=== PATIENT | female | born 1950 | race Caucasian/White ===

== ENCOUNTER 2019-09-06 16:20 | Emergency (ER) | payer MEDICARE ==
[~2019-09-06] VITALS: Ht 167.6 cm; Wt 56.2 kg
[~2019-09-06 16:20] MED LIST: ESTRADIOL0.5 MG PO; LISINOPRIL10 MG PO; PAXIL10 MG PO
--- NOTE | 2019-09-06 17:15 | NUR ---
NO ANSWER IN LOBBY
--- NOTE | 2019-09-06 17:58 | NUR ---
NO ANSWER IN LOBBY
--- OUTSIDE RECORDS SUMMARY | 2019-09-07 19:27 | XMS REPORT ---
Author [facility] Address Unknown Phone Unavailable Care Team Providers Care Storage Receipt Poster Name Role Phone Rene ABR Unavailable Unavailable Problems This patient has no known problems. Allergies, Adverse Reactions, Alerts This patient has no known allergies or adverse reactions. Medications This patient has no known medications. Results Test Description Test Time Test Comments Text Results Atomic Results Result Comments ANKLE 3 VIEW RT - HOPD 2019-08-19 14:28:00 [place] [address] Patient Name: ELVIS PHILLIPS MR #: [id number] : 1950 Age/Sex: 69/F Req #: [id number] Adm Physician: Ordered by: STEFAN BAR MD Report #: [id number] Location: FS Room/Bed: Procedure: [id number] HOPD/ANKLE 3 VIEW RT - HOPD Exam Date: 08/19/19 Exam Time: 1426 REPORT STATUS: Signed Right ankle, 3 views. History: Right ankle pain and swelling. Findings: The soft tissues are normal. Bone mineralization is normal. There is no evidence of fracture or dislocation. There are no lytic or sclerotic lesions. The mortise joint is within normal limits. IMPRESSION: Normal right ankle. Signed by: Suzanne Meehan on 08/19/2019 2:29 PM Dictated By: SUZANNE MEEHAN MD 1422 Transcribed By: FOZIA on 08/19/19 142 COPY TO: STEFAN BAR MD
== END 2019-09-06 18:50 | disposition left against medical advice (07) ==
LOC: ER 16:20
DX: M79.671 Pain in right foot (principal)
CPT/HCPCS: 99281

== ENCOUNTER 2020-11-15 19:59 | Emergency (ER) | payer MEDICARE ==
[~2020-11-15] VITALS: Ht 167.6 cm; Wt 54.4 kg
[2020-11-15] MEDS ORDERED: SODIUM CHLORIDE 0.9% 1000ML 1,000 ML IV SCH (21:45)
[2020-11-15] MEDS ORDERED: LIDOCAINE HCL 1% LOCAL INJ 20 ML VIAL ONE (21:53)
[2020-11-15] MEDS ORDERED: HYDROCODONE/APAP 5MG-325MG TAB PO ONE (22:00)
[2020-11-15] MEDS ORDERED: CEFAZOLIN SOD 1 GM VIAL ONE (22:51)
[2020-11-15] MEDS ORDERED: BACITRACIN ZINC 0.9GM TP ONE (23:37)
[2020-11-15] MEDS ORDERED: CEPHALEXIN500 MG PO (23:45)
== END 2020-11-16 00:07 | disposition home or self-care (01) ==
LOC: FSED 20:06
DX: S01.81XA Laceration without foreign body of other part of head, initial encounter (principal); R51.9 Headache, unspecified; W18.09XA Striking against other object with subsequent fall, initial encounter; Y92.008 Other place in unspecified non-institutional (private) residence as the place of occurrence of the external cause; R94.31 Abnormal electrocardiogram [ECG] [EKG]; I10 Essential (primary) hypertension; N28.9 Disorder of kidney and ureter, unspecified; Z85.038 Personal history of other malignant neoplasm of large intestine
CPT/HCPCS: 12014; 70450; 93005; 99284; J0690; J2001; J7030